=== PATIENT | male | born 1985 | race African-American/Black ===

== ENCOUNTER 2016-03-07 13:45 | Emergency (ER) | payer BC ==
[~2016-03-07] VITALS: Ht 160 cm; Wt 90.7 kg
[~2016-03-07 13:45] MED LIST: PENI500T PO; TRAM-29 PO
[2016-03-07 14:24] VITALS: BP 130/63
--- NOTE | 2016-03-07 15:33 | RAD ---
Left elbow radiographs History: Lateral epicondylar pain after injury 2 weeks earlier. Comparison: None. Findings: AP, lateral, and oblique views of the left elbow. No acute fracture or dislocation is identified. No joint effusion is seen. Best appreciated on the oblique lateral view, there is a linear artifact projecting over the proximal forearm which appears external to the patient. Impression: No acute osseous abnormality identified.
[2016-03-07] MEDS ORDERED: PROAIR HFA8.5 GM INH (15:45)
[2016-03-07] MEDS ORDERED: PRED20TA PO (15:45)
--- NOTE | 2016-03-07 15:46 | PHYS DOC ---
Past Medical History Past Medical History: No Pertinent History Past Surgical History: No Surgical History Additional Information: nonsmoker Alcohol Use: Occasionally Drug Use: None Adult General Chief Complaint Chief Complaint: SORE THROAT HPI HPI Patient is a 30 year old male who presents with sore throat for 3 days. He also reports nasal congestion and productive cough. He denies fever, shortness of breath, ear pain, nausea, vomiting, or diarrhea. He's been taking mucus relief and daytime TheraFlu without relief of his symptoms. He denies any known sick contacts. Patient also complains of left elbow pain for 2 weeks. He he relates that he bumped his elbow while at work. He continues to have pain particularly with range of motion. He does not have a PCP. Review of Systems Review of Systems Constitutional: Denies fever or chills. [] Eyes: Denies change in visual acuity, redness, or eye pain. [] HENT: Denies ear pain. Reports nasal congestion and sore throat. Respiratory: Denies shortness of breath. Reports productive cough. Cardiovascular: Denies chest pain, palpitations, or edema. [] GI: Denies abdominal pain, nausea, vomiting, bloody stools or diarrhea. [] : Denies dysuria or hematuria. [] Musculoskeletal: Denies back pain. Reports left elbow pain. Integument: Denies rash or skin lesions. [] Neurologic: Denies headache, focal weakness or sensory changes. [] Endocrine: Denies polyuria or polydipsia. [] Psych: Denies anxiety or depression. All systems reviewed and negative unless otherwise indicated in the HPI. Allergies Allergies Allergies Coded Allergies Type Severity Reaction Last Updated Verified No Known Drug Allergies 02/16/16 No Physical Exam Physical Exam Constitutional: Well developed, well nourished, no acute distress, non-toxic appearance. [] HENT: Normocephalic, atraumatic, bilateral external ears normal, oropharynx moist, no oral exudates, nose normal. Bilateral TMs without erythema or bulging. There is posterior pharyngeal erythema with mild tonsillar edema bilaterally. There are no tonsillar exudates or evidence peritonsillar abscess. There is no uvular deviation. Bilateral nasal turbinates are swollen and erythematous with purulent drainage. Eyes: PERRLA, EOMI, conjunctiva normal, no discharge. [] Neck: Normal range of motion, no tenderness, supple, no stridor. [] Cardiovascular:Heart rate regular rhythm, no murmur [] Lungs & Thorax: Bilateral breath sounds clear to auscultation without wheezes, rales, or rhonchi. Skin: Warm, dry, no erythema, no rash. No laceration, abrasion, ecchymosis, or edema of the left elbow. Back: No tenderness, no CVA tenderness. [] Extremities: Left lateral epicondyle tenderness, no cyanosis, no clubbing, ROM intact, no edema. 2+ radial and ulnar pulses. Less than 2 second capillary refill distally. Light touch sensation intact distally. Neurologic: Alert and oriented X 3, normal motor function, normal sensory function, no focal deficits noted. [] Psychologic: Affect normal, judgement normal, mood normal. [] Current Patient Data Vital Signs Vital Signs Date Time Temp Pulse Resp B/P Pulse Ox O2 Delivery O2 Flow Rate FiO2 03/07/16 14:24 98.8 83 18 98 Room Air 98.8 EKG EKG [] Radiology/Procedures Radiology/Procedures REASON: lateral epicondyle pain after injury, X 2 WEEKS, BUMPED ELBOW PROCEDURE: ELBOW LEFT 3V Left elbow radiographs History: Lateral epicondylar pain after injury 2 weeks earlier. Comparison: None. Findings: AP, lateral, and oblique views of the left elbow. No acute fracture or dislocation is identified. No joint effusion is seen. Best appreciated on the oblique lateral view, there is a linear artifact projecting over the proximal forearm which appears external to the patient. Impression: No acute osseous abnormality identified. Course & Med Decision Making Course & Med Decision Making Pertinent Labs and Imaging studies reviewed. (See chart for details) [] Dragon Disclaimer Dragon Disclaimer This electronic medical record was generated, in whole or in part, using a voice recognition dictation system. Departure Departure Impression: Primary Impression: URI (upper respiratory infection) Additional Impression: Elbow contusion Disposition: 01 HOME, SELF-CARE Condition: STABLE Referrals: NO PCP (PCP) Patient Instructions: Elbow Contusion, [id number], Upper Respiratory Infection, Adult, [id number] Additional Instructions: Your strep test today was negative. The x-ray of your elbow does not show any broken bones or dislocations. Please take the prescribed medications as directed. Please follow up with a primary care doctor if your symptoms continue. Return to the emergency department if you have any new or concerning symptoms. Scripts Prednisone 20 Mg [id number] Mg PO DAILY 5 Days Prov:MANDO WHEELER 03/07/16 Albuterol Sulfate (Proair Hfa Inhaler)8.5 Gm [id number] Puff INH PRN Q6HRS PRN SHORTNESS OF BREATH #1 INHALER Prov:MANDO WHEELER 03/07/16 Problem Qualifiers Primary Impression: URI (upper respiratory infection) URI type: unspecified viral URI Qualified Code: J06.9 - Acute upper respiratory infection, unspecified Additional Impression: Elbow contusion Encounter type: initial encounter Laterality: left Qualified Code: S50.02XA - Contusion of left elbow, initial encounter MANDO WHEELER Mar 07, 2016 15:45
[2016-03-08 10:49] LABS: NEGATIVE OBC STREP NEG; POSITIVE OBC STREP POS
== END 2016-03-07 16:00 | disposition home or self-care (01) ==
LOC: ER 13:45
DX: J06.9 Acute upper respiratory infection, unspecified (principal); S50.02XA Contusion of left elbow, initial encounter; W22.8XXA Striking against or struck by other objects, initial encounter; Y93.89 Activity, other specified; Y99.8 Other external cause status; Y92.69 Other specified industrial and construction area as the place of occurrence of the external cause
CPT/HCPCS: 73080; 87070; 87880; 99285-25

== ENCOUNTER 2016-07-19 22:29 | Emergency (ER) | payer BC ==
[~2016-07-19] VITALS: Ht 160 cm; Wt 81.6 kg
[~2016-07-19 22:29] MED LIST changes: +PRED20TA PO; +PROAIR HFA8.5 GM INH; -TRAM-29 PO; +TRAM-48 PO
[2016-07-19 22:49] VITALS: BP 137/82
[2016-07-19 22:57] LABS: BILIRUBIN,URINE NEGATIVE (NEG); GLUCOSE,URINE NEGATIVE (NEG); NITRITE,URINE NEGATIVE (NEG); PROTEIN,URINE NEGATIVE (NEG-TRACE); UROBILINOGEN,URINE 0.2 mg/dL (0.2 mg/dL)
[2016-07-19 23:03] LABS: BACTERIA,URINE 0 /HPF (0-FEW); RBC,URINE 0 /HPF (0-2); WBC,URINE 0 /HPF (0-4)
--- NOTE | 2016-07-19 23:17 | PHYS DOC ---
Past Medical History Past Medical History: No Pertinent History Past Surgical History: No Surgical History Alcohol Use: Occasionally Drug Use: None Adult General Chief Complaint Chief Complaint: PAIN ON URINATION [facility] HPI Patient is a 31 year old male who presents with concern for UTI. Patient states the girlfriend informed him she tested positive for UTI. Patient got concerned and came to the ED to be checked out. Patient states he does not know if UTI is a sexually transmitted diseases or not. Patient states they're both in a monogamous relationship. Patient denies any dysuria. He states he has some slight urgency but he has not been drinking enough water lately. Review of Systems Review of Systems Constitutional: Denies fever or chills [] Eyes: Denies change in visual acuity, redness, or eye pain [] HENT: Denies nasal congestion or sore throat [] Respiratory: Denies cough or shortness of breath [] Cardiovascular: No additional information not addressed in HPI [] GI: Denies abdominal pain, nausea, vomiting, bloody stools or diarrhea [] : urgency, concern for UTI Musculoskeletal: Denies back pain or joint pain [] Integument: Denies rash or skin lesions [] Neurologic: Denies headache, focal weakness or sensory changes [] Endocrine: Denies polyuria or polydipsia [] Allergies Allergies Allergies Coded Allergies Type Severity Reaction Last Updated Verified No Known Drug Allergies 02/16/16 No Physical Exam Physical Exam Constitutional: Well developed, well nourished, no acute distress, non-toxic appearance. [] HENT: Normocephalic, atraumatic, bilateral external ears normal, oropharynx moist, no oral exudates, nose normal. [] Eyes: PERRLA, EOMI, conjunctiva normal, no discharge. [] Neck: Normal range of motion, no tenderness, supple, no stridor. [] Cardiovascular:Heart rate regular rhythm, no murmur [] Lungs & Thorax: Bilateral breath sounds clear to auscultation [] Abdomen: Bowel sounds normal, soft, no tenderness, no masses, no pulsatile masses. [] Skin: Warm, dry, no erythema, no rash. [] Back: No tenderness, no CVA tenderness. [] Extremities: No tenderness, no cyanosis, no clubbing, ROM intact, no edema. [] Neurologic: Alert and oriented X 3, normal motor function, normal sensory function, no focal deficits noted. [] Psychologic: Affect normal, judgement normal, mood normal. [] Current Patient Data Vital Signs Vital Signs Date Time Temp Pulse Resp B/P (MAP) Pulse Ox O2 Delivery O2 Flow Rate FiO2 07/19/16 22:49 98.2 76 20 98 Room Air 98.2 Lab Values Laboratory Tests Test 07/19/16 22:43 Urine Collection Type Unknown Urine Color Yellow Urine Clarity Clear Urine pH 6.0 Urine Specific [place] 1.010 Urine Protein Negative mg/dL (NEG-TRACE) Urine Glucose (UA) Negative mg/dL (NEG) Urine Ketones (Stick) Negative mg/dL (NEG) Urine Blood Negative (NEG) Urine Nitrite Negative (NEG) Urine Bilirubin Negative (NEG) Urine Urobilinogen Dipstick 0.2 mg/dL (0.2 mg/dL) Urine Leukocyte Esterase Negative (NEG) Urine RBC 0 /HPF (0-2) Urine WBC 0 /HPF (0-4) Urine Bacteria 0 /HPF (0-FEW) EKG EKG [] Radiology/Procedures Radiology/Procedures [] Course & Med Decision Making Course & Med Decision Making Pertinent Labs and Imaging studies reviewed. (See chart for details) This is a healthy 31-year-old male patient who presents today with concern for UTI because the girlfriend informed him she is being treated for UTI. Patient would like to be checked out. Patient was educated UTI is not a sexually transmitted disease. His urine was sent to lab. Urine analysis is negative for infection or blood. We did check with him to see if he has any concerns for STDs which he denied. He had some slight urgency which he states is from not drinking enough water. Encouraged him to push fluids. Provided him a urologist for follow-up next week if symptoms continue. Dragon Disclaimer Dragon Disclaimer This electronic medical record was generated, in whole or in part, using a voice recognition dictation system. Departure Departure Impression: Primary Impression: Urinary urgency Disposition: 01 HOME, SELF-CARE Condition: STABLE Referrals: NO PCP (PCP) LUPILLO FRIAS MD Follow-up with the provided doctor in one week if symptoms continues Patient Instructions: Dysuria-Brief Additional Instructions: You were seen with concern for UTI. Your urine has no infection today. We will keep it in the lab for culture and see if it grows any STDs. If it does we will let you know CHASTITY LESTER APRN July 19, 2016 23:17
== END 2016-07-19 23:24 | disposition home or self-care (01) ==
LOC: ER 22:29
DX: R39.15 Urgency of urination (principal)
CPT/HCPCS: 81001; 87491; 87591; 99284

== ENCOUNTER 2020-02-06 19:35 | Emergency (ER) | payer SELFPAY ==
[~2020-02-06] VITALS: Ht 160 cm; Wt 109.0 kg
[~2020-02-06 19:35] MED LIST changes: +ALBU2.5V8 INH; +PRED50TA PO; -PROAIR HFA8.5 GM INH
[2020-02-06 20:12] VITALS: BP 170/94
[2020-02-06] MEDS ORDERED: METH4TAB2 PO (20:33)
[2020-02-06] MEDS ORDERED: AZIT250T6 PO (20:33)
[2020-02-06] MEDS ORDERED: IBUP-1007 PO (20:33)
--- NOTE | 2020-02-06 20:34 | PHYS DOC ---
Past Medical History Past Medical History: No Pertinent History (SINDY MALDONADO PICK UP ATTENDANT) Past Surgical History: No Surgical History (SINDY MALDONADO PICK UP ATTENDANT) Smoking Status: Never Smoker Alcohol Use: Occasionally Drug Use: None (SINDY MALDONADO APRN) General Adult EDM: Chief Complaint: EARACHE/EAR PAIN HPI: HPI: Patient is a 34 year old male who presents with right ear throbbing pain with throat soreness for the last week. He states he does have allergies and he has been taking Sudafed but is not helping. He denies any nasal congestion, fever, cough, shortness of breath, chest pain, headache, dizziness, haile pain, nausea, vomiting, diarrhea. States approximately 2 weeks ago he had a tooth removed in the right side of his mouth. Patient rates his discomfort at a 7 out of 10. (SINDY MALDONADO PICK UP ATTENDANT) Review of Systems: Review of Systems: Constitutional: Denies fever or chills. [] Eyes: Denies change in visual acuity. [] HENT: Denies nasal congestion. +sore throat, + right earache. [] Respiratory: Denies cough or shortness of breath. [] Cardiovascular: Denies chest pain or edema. [] GI: Denies abdominal pain, nausea, vomiting, bloody stools or diarrhea. [] : Denies dysuria. [] Musculoskeletal: Denies back pain or joint pain. [] Integument: Denies rash. [] Neurologic: Denies headache, focal weakness or sensory changes. [] Endocrine: Denies polyuria or polydipsia. [] Lymphatic: Denies swollen glands. [] Psychiatric: Denies depression or anxiety. [] (SINDY MALDONADO PICK UP ATTENDANT) Heart Score: Risk Factors: Risk Factors: DM, Current or recent (<one month) smoker, HTN, HLP, family history of CAD, obesity. Risk Scores: Score 0 - 3: 2.5% MACE over next 6 weeks - Discharge Home Score 4 - 6: 20.3% MACE over next 6 weeks - Admit for Clinical Observation Score 7 - 10: 72.7% MACE over next 6 weeks - Early Invasive Strategies (SINDY MALDONADO PICK UP ATTENDANT) Allergies: Allergies: Allergies Coded Allergies Type Severity Reaction Last Updated Verified No Known Drug Allergies 02/16/16 No (SINDY MALDONADO APRN) Physical Exam: PE: Constitutional: Well developed, well nourished, no acute distress, non-toxic appearance. [] HENT: Normocephalic, atraumatic, bilateral external ears normal, oropharynx moist, no oral exudates, nose normal. Right ear tympanic pink and foggy in color. Tonsils 1+ swollen with redness and no exudates. Uvula midline. No trismus. [] Eyes: PERRLA, EOMI, conjunctiva normal, no discharge. [] Neck: Normal range of motion, no tenderness, supple, no stridor. [] Cardiovascular:Heart rate regular rhythm, no murmur [] Lungs & Thorax: Bilateral breath sounds clear to auscultation [] Abdomen: Bowel sounds normal, soft, no tenderness, no masses, no pulsatile masses. [] Skin: Warm, dry, no erythema, no rash. [] Back: No tenderness, no CVA tenderness. [] Extremities: No tenderness, no cyanosis, no clubbing, ROM intact, no edema. [] Neurologic: Alert and oriented X 3, normal motor function, normal sensory function, no focal deficits noted. [] Psychologic: Affect normal, judgement normal, mood normal. [] (SINDY MALDONADO APRN) EKG: EKG: [] (SINDY MALDONADO APRN) Radiology/Procedures: Radiology/Procedures: [] (SINDY MALDONADO APRN) Course & Med Decision Making: Course & Med Decision Making Pertinent Labs and Imaging studies reviewed. (See chart for details) See HPI. Speaks in full complete sentences. Alert and oriented x4. Ambulatory with a steady gait. Skin pink warm and dry. Afebrile. Patient right ear tympanic is pink in color and foggy. Throat is reddened with 1+ tonsil swelling but there is no exudates. Lungs are clear to auscultation all lobes. Patient is stable. He will be given a prescription for ibuprofen, Medrol Dosepak and azithromycin. [] (SINDY MALDONADO APRN) Course & Med Decision Making I have reviewed the MACHINIST SUPERVISOR's note and plan of care. I was available for consultation as needed during the patient's visit in the emergency department. I agree with the clinical impression, plan, and disposition. (ISABELA RAMIRES DO) Dayan Disclaimer: Dayan Disclaimer: This electronic medical record was generated, in whole or in part, using a voice recognition dictation system. (SINDY MALDONADO APRN) Departure Departure Impression: Primary Impression: Ear infection Additional Impression: Sore throat Disposition: 01 DC HOME SELF CARE/HOMELESS Condition: STABLE Referrals: NO PCP (PCP) Patient Instructions: Otitis Media, Adult, Sore Throat Additional Instructions: Follow-up with primary care physician. Take medication as prescribed. Continue taking your Sudafed every day. Take ibuprofen for your pain. Scripts Methylprednisolone (MEDROL) 4 Mg Tab.ds.pk 1 PKG PO UD, #1 PKG Prov: SINDY MALDONADO APRN 02/06/20 Ibuprofen (IBUPROFEN) 600 Mg Tablet 600 MG PO PRN Q6HRS PRN for INFLAMMATION, #20 TAB Prov: SINYD MALDONADO APRN 02/06/20 Azithromycin (AZITHROMYCIN TABLET) 250 Mg Tablet 1 PKG PO UD for 5 Days, #6 TAB 0 Refills 2 the first day followed by 1 for days 2-5 Prov: SINDY MALDONADO APRN 02/06/20 SINDY MALDONADO APRN Feb 06, 2020 20:34 ISABELA RAMIRES DO Feb 07, 2020 02:48
[2020-02-06] MEDS: predniSONE 20 MG TABLET PO ONE (20:52)
[2020-02-06] MEDS: IBUPROFEN 200 MG TABLET. PO ONE (20:53)
== END 2020-02-06 20:58 | disposition home or self-care (01) ==
LOC: ER 19:35
DX: J02.9 Acute pharyngitis, unspecified (principal); H92.01 Otalgia, right ear
CPT/HCPCS: 99283; J7512